=== PATIENT | female | born 1995 ===

== ENCOUNTER 2022-08-21 11:23 | Inpatient (IN) | payer BC, MEDICAID ==
[2022-08-21] MEDS ORDERED: Methylergonovine 0.2 MG/1 ML Amp IM PRN (12:01)
[2022-08-21] MEDS ORDERED: Water For Irrigation,Sterile 1,000 ML Container IRR PRN (12:01)
[2022-08-21] MEDS ORDERED: Lidocaine 1% 50 ML MDV INJECT PRN (12:01)
[2022-08-21] MEDS ORDERED: Tranexamic Acid 1,000 MG in Sodium Chloride 0.9% 100 ML IV PRN (12:01)
[2022-08-21] MEDS ORDERED: Misoprostol 200 MCG Tab PO PRN (12:01)
[2022-08-21] MEDS ORDERED: Carboprost Tromethamine 250 MCG/1 mL Vial IM PRN (12:01)
[2022-08-21] MEDS ORDERED: Sodium Chloride 0.9% 2.5 ML Syringe FLUSH PRN (12:01)
[2022-08-21] MEDS ORDERED: Sodium Chloride 0.9% 10 ML Syringe FLUSH PRN (12:01)
[2022-08-21] MEDS ORDERED: Sodium Chloride 0.9% 20 ML SDV IV PRN (12:01)
[2022-08-21] MEDS ORDERED: Butorphanol 1 MG/ML SDV IVPUSH PRN (12:01)
[2022-08-21] MEDS ORDERED: Oxytocin/0.9 % Sodium Chloride 30 UNIT/500 ML BAG IV SCH (12:15)
[2022-08-21 12:29] LABS: HEMATOCRIT 37.2 % (36.0-46.0); HEMOGLOBIN 12.8 g/dL (12.0-16.0); MEAN CORPUSCULAR HEMOGLOBIN 31.2 pg (27.0-32.0); MEAN CORPUSCULAR HGB CONC 34.4 g/dL (31.0-37.0); MEAN CORPUSCULAR VOLUME 90.7 fL (80.0-98.0); MEAN PLATELET VOLUME 13.3 fL (7.40-12.00); RED BLOOD CELL COUNT 4.1 M/uL (4.30-5.90); WHITE BLOOD CELL COUNT,WBC 7.85 K/uL (4.0-11.0)
[2022-08-21] MEDS ORDERED: Terbutaline 1 MG/ML SDV SUBCUT PRN (15:40)
[2022-08-21] MEDS: Lactated Ringers 1,000 ML IV SCH ×2 (15:52→20:41)
[2022-08-21] MEDS: Oxytocin/0.9 % Sodium Chloride 30 UNIT/500 ML BAG IV SCH (16:02)
[2022-08-21] MEDS ORDERED: Dexmedetomidine 200 MCG/2 ML SDV ONE (20:58)
[2022-08-21] MEDS ORDERED: Ropivacaine/PF 400 MG/200 ML PCA ONE (20:58)
[2022-08-21] MEDS ORDERED: Phenylephrine HCl 0.5 MG/5 ML AMP IVPUSH PRN (21:12)
[2022-08-21] MEDS ORDERED: ePHEDrine 50 MG/ML SDV IVPUSH PRN ×2 (21:12)
[2022-08-21] MEDS ORDERED: Ropivacaine HCl/PF 400 MG in Premix Bag 1 BAG EPIDUR SCH (21:15)
[2022-08-22] MEDS: Lactated Ringers 1,000 ML IV SCH ×5 (00:23→23:30)
[2022-08-22] MEDS ORDERED: Lidocaine 2% with EPINEPHrine 1:200,000 20 ML SDV ONE (03:01)
[2022-08-22] MEDS ORDERED: Ropivacaine/PF 400 MG/200 ML PCA ONE (11:37)
[2022-08-22] MEDS ORDERED: Bupivacaine 0.5% 10 ML SDV ONE (11:37)
[2022-08-22] MEDS: Oxytocin/0.9 % Sodium Chloride 30 UNIT/500 ML BAG IV SCH (21:13)
[2022-08-22] MEDS ORDERED: ceFAZolin 1 GM Vial ONE (23:27)
[2022-08-22] MEDS ORDERED: Ketorolac 30 MG/ML SDV ONE (23:27)
[2022-08-22] MEDS ORDERED: Morphine PF 10 MG/10 ML SDV ONE (23:27)
[2022-08-22] MEDS ORDERED: Oxytocin 10 Units/1 ML SDV ONE (23:27)
[2022-08-22] MEDS ORDERED: Ropivacaine 0.5% 5 MG/ML 30 ML SDV ONE (23:27)
[2022-08-22] MEDS ORDERED: Dexamethasone 4 MG/ML 5 ML MDV ONE (23:27)
[2022-08-22] MEDS ORDERED: Ondansetron 4 MG/2 ML SDV ONE (23:27)
[2022-08-22] MEDS ORDERED: fentaNYL 100 MCG/2 ML SDV ONE (23:27)
[2022-08-22] MEDS ORDERED: ceFAZolin 2 GM Vial ONE (23:56)
[2022-08-23] MEDS ORDERED: Ropivacaine 0.5% 5 MG/ML 30 ML SDV ONE (00:39)
[2022-08-23] MEDS ORDERED: Bupivacaine 0.5% 10 ML SDV ONE ×2 (00:39→00:40)
[2022-08-23] MEDS ORDERED: Acetaminophen/oxyCODONE 325-5 MG Tab PO PRN ×3 (01:04→03:10)
[2022-08-23] MEDS ORDERED: Ondansetron 4 MG/2 ML SDV IVPUSH PRN ×3 (01:04→03:10)
[2022-08-23] MEDS ORDERED: Measles, Mumps & Rubella Vaccine 0.5 ML SDV SUBCUT ONE (01:04)
[2022-08-23] MEDS ORDERED: Tranexamic Acid 1,000 MG in Sodium Chloride 0.9% 100 ML IV PRN (01:04)
[2022-08-23] MEDS ORDERED: Misoprostol 200 MCG Tab RECTAL PRN (01:04)
[2022-08-23] MEDS ORDERED: Lanolin 100% Cream 7 GM Tube TOP PRN (01:04)
[2022-08-23] MEDS ORDERED: Bisacodyl 10 MG Supp RECTAL PRN (01:04)
[2022-08-23] MEDS ORDERED: Ibuprofen 800 MG Tab PO PRN (01:04)
[2022-08-23] MEDS ORDERED: diphenhydrAMINE 50 MG/ML SDV IVPUSH PRN ×2 (01:04→03:10)
[2022-08-23] MEDS ORDERED: Lactated Ringers 1,000 ML IV SCH (01:15)
[2022-08-23] MEDS ORDERED: Ketorolac 30 MG/ML SDV IVPUSH SCH ×2 (01:15→06:00)
[2022-08-23 01:29] LABS: PH,UMBILICAL ARTERIAL 7.256 (7.18-7.38); PH,UMBILICAL VENOUS 7.288 (7.25-7.45)
[2022-08-23] MEDS ORDERED: HYDROmorphone 1 MG/ML Syringe IVPUSH PRN (03:10)
[2022-08-23] MEDS ORDERED: droPERidol 5 MG/2 ML SDV IVPUSH PRN (03:10)
[2022-08-23] MEDS ORDERED: Morphine 2 MG/ML SYRINGE IVPUSH PRN (03:10)
[2022-08-23] MEDS ORDERED: Albuterol 0.083% 2.5 MG/3 ML Neb Soln NEB PRN (03:10)
[2022-08-23] MEDS ORDERED: Naloxone 0.4 MG/ML SDV IVPUSH PRN (03:10)
[2022-08-23] MEDS ORDERED: fentaNYL 50 MCG/ML SDV IVPUSH PRN (03:10)
[2022-08-23] MEDS ORDERED: fentaNYL 100 MCG/2 ML SDV IVPUSH PRN (03:10)
[2022-08-23] MEDS ORDERED: Metoclopramide 10 MG/2 ML SDV IVPUSH PRN (03:10)
[2022-08-23 05:58] LABS: HEMATOCRIT 33.1 % (36.0-46.0); HEMOGLOBIN 11.3 g/dL (12.0-16.0); MEAN CORPUSCULAR HEMOGLOBIN 31.1 pg (27.0-32.0); MEAN CORPUSCULAR HGB CONC 34.1 g/dL (31.0-37.0); MEAN CORPUSCULAR VOLUME 91.2 fL (80.0-98.0); MEAN PLATELET VOLUME 12.4 fL (7.40-12.00); RED BLOOD CELL COUNT 3.63 M/uL (4.30-5.90); WHITE BLOOD CELL COUNT,WBC 15.38 K/uL (4.0-11.0)
[2022-08-23] MEDS ORDERED: Docusate Sodium 100 MG Cap PO SCH (09:00)
[2022-08-23] MEDS: Ibuprofen 600 MG Tab PO PRN ×2 (12:31→18:03)
[2022-08-24] MEDS: Ibuprofen 600 MG Tab PO PRN ×2 (00:58→07:23)
[2022-08-24] MEDS: Ibuprofen 800 MG Tab PO PRN ×2 (15:18→23:00)
[2022-08-25] MEDS: Ibuprofen 800 MG Tab PO PRN (08:12)
== END 2022-08-25 13:40 | disposition home or self-care (01) | DRG 540 ==
LOC: MW.OBCHECK 11:23 → MW.OB 11:25 → MW.OBCHECK 12:00 → MW.OB 12:01 → OBSVTOIN 08-23 00:03 → MW.OB 08-23 04:08
PROVIDERS: ADMIT Obstetrics & Gynecology; ATTEND Obstetrics & Gynecology
PROC: 10D00Z1 Extraction of Products of Conception, Low, Open Approach (ICD-10-PCS; principal; 2022-08-23)
PROC: 10H07YZ Insertion of Other Device into Products of Conception, Via Natural or Artificial Opening (ICD-10-PCS; 2022-08-23)
DX: O42.02 Full-term premature rupture of membranes, onset of labor within 24 hours of rupture (principal); O99.214 Obesity complicating childbirth; O62.1 Secondary uterine inertia; O99.12 Other diseases of the blood and blood-forming organs and certain disorders involving the immune mechanism complicating childbirth; D69.6 Thrombocytopenia, unspecified; O76 Abnormality in fetal heart rate and rhythm complicating labor and delivery; Z37.0 Single live birth; Z3A.38 38 weeks gestation of pregnancy
CPT/HCPCS: 01967; 01968; 36415; 64488; 82803; 84112; 85027; 86592; 86850; 86900; 86901; A9270-GY; J0690; J1100; J1885; J2274; J2405; J2590; J2795; J3010; J3490; J7120